=== PATIENT | female | born 2005 | race Caucasian/White ===

== ENCOUNTER 2024-10-05 17:34 | Observation (INO) | payer OTHER ==
[~2024-10-05] VITALS: Ht 167.6 cm; Wt 99.0 kg
[2024-10-05 19:06] LABS: BILIRUBIN, URINE POSITIVE (negative); BLOOD/HGB, URINE NEGATIVE (Negative); KETONE, URINE NEGATIVE (Negative); LEUK ESTERASE, URINE SMALL (negative); NITRITE, URINE NEGATIVE (negative); PH, URINE 5.5 (5-7)
[2024-10-05 19:15] LABS: BACTERIA, URINE 1+ /hpf (negative); CASTS, URINE NONE SEEN \\lpf; CRYSTALS, URINE NONE SEEN (0-1+); EPITHELIAL CELLS, URINE SQUAMOUS 2+ /lpf (0-1+); RED BLOOD CELLS, URINE 0-1 /hpf (0-5)
[2024-10-05 19:16] LABS: COLLECTION TYPE, URINE CLEAN CATCH; REFLEX CULTURE, URINE No (No)
[2024-10-05 19:38] LABS: BASOPHILS 2.8 % (0-2); EOSINOPHILS 3.4 % (0-6); HEMATOCRIT 38.1 % (35.0-50.0); HEMOGLOBIN 12.8 g/dL (12.0-18.0); LYMPHOCYTES 21.2 % (24-44); MCH 25.1 (27-36); MCHC 33.6 g/dl (30-36); MCV 74.9 fl (81-99); MONOCYTES 4.4 % (0-12); NEUTROPHILS 68.2 % (39-80); PLATELET COUNT 266 K/uL (140-440); RBC 5.09 M/ul (4.3-5.7); RDW 15.6 (10.5-15.0)
[2024-10-05 19:40] LABS: INR 1.07 (0.80-1.30); PROTIME 13.2 Sec (11.2-14.2)
[2024-10-05] MEDS ORDERED: MORPHINE SULFATE 4 MG/ML VIAL IV ONE (19:45)
[2024-10-05] MEDS ORDERED: ondansetron HCL 4 MG/2 ML VIAL IV ONE (19:45)
[2024-10-05 19:46] LABS: ALBUMIN 3.8 g/dL (3.4-5.0); ALBUMIN/GLOBULIN RATIO 1.06 (1.1-2.4); ALKALINE PHOSPHATASE 255 U/L (46-116); ALT (SGPT) 664 U/L (14-59); ANION GAP 13.2 (7-21); AST (SGOT) 401 U/L (15-37); BILIRUBIN, TOTAL 3.7 ng/dL (0.2-1.0); CALCIUM 8.9 mg/dL (8.5-10.1); CARBON DIOXIDE 28 mmol/L (21-32); CHLORIDE 104 mmol/L (98-107); CREATININE, SERUM 0.92 mg/dL (0.55-1.02); GAMMA GLUTAMYL TRANSFERASE 492 U/L (5-55); GLOMERULAR FILTRATION RATE,EST 91 mL/min (>60); MAGNESIUM 1.9 mg/dL (1.8-2.4); POTASSIUM 3.2 mmol/L (3.5-5.1); PROTEIN, TOTAL 7.4 g/dL (6.4-8.2); UREA NITROGEN 7 mg/dL (7-18)
[2024-10-05] MEDS ORDERED: metroNIDAZOLE/SODIUM CHLORIDE 500 MG/100 ML PIGGYBACK IV ONE (20:30)
[2024-10-05] MEDS ORDERED: CEFTRIAXONE/SODIUM CHLORIDE 2 GM/100 ML PIGGYBACK IV ONE (20:30)
[2024-10-05] MEDS ORDERED: HEParin SOD (PORCINE) 5,000 UNIT/ML SDV SUB-Q ONE (20:30)
[2024-10-05] MEDS ORDERED: DEXTROSE 5% - LACTATED RINGERS 1,000 ML IV SCH (20:45)
[2024-10-05] MEDS ORDERED: ondansetron HCL 4 MG/2 ML VIAL IV PRN (20:45)
[2024-10-05] MEDS ORDERED: ACETAMINOPHEN 325 MG TAB PO PRN (20:45)
[2024-10-05] MEDS ORDERED: HYDROmorphone HCL 1 MG/ML SYR IV PRN (20:45)
[2024-10-05 21:19] VITALS: BP 123/82
[2024-10-05] MEDS ORDERED: FLUOXETINE HCL40 MG PO (21:24)
--- NOTE | 2024-10-05 21:29 | NUR ---
2119- ARRIVED TO ROOM 115 FROM ER VIA STRETCHER, HELPED TRANSFERRING TO BED. IND. ALERT AND ORINETED X4, NO C/O PAIN AT THIS TIME, IV ABX INFUSING LAC. AWARE OF NPO STATUS. COOPERATIVE, ON ROOM AIR. SIGNIFICANT OTHER IN ROOM
--- NOTE | 2024-10-05 22:41 | NUR ---
C/O FEELING NAUSEATED, MEDICATED WITH ZOFRAN
[2024-10-05 23:00] VITALS: BP 123/82
--- NOTE | 2024-10-05 23:02 | NUR ---
pt had 400cc emesis, had jello and sips of water earlier, was medicated a few minutes ago with Zofran. Up to brp with 1PA, voiding. IVF infusing, no c/o pain at this time, fiancee in room. pt aware of NPO status, does own oral and jani care.
[2024-10-06] VITALS (10 sets, daily range): BP systolic 110–146; BP diastolic 65–86
--- NOTE | 2024-10-06 00:22 | NUR ---
Awake, no c/o pain or further c/o n/v. IVF infusing. NPO for am procedure. SCD's and CPOX at bedside. Tele#[phone] SB. male friend in room
--- NOTE | 2024-10-06 03:58 | NUR ---
Resting, no c/o or s/sx distress. on room air, VIF infusing w/o problems, tele#[address], sinus silvana, HR dropped to 45 and back to 56. awakens easily no c/o abd pain or n/v
[2024-10-06 05:23] LABS: BASOPHILS 1.3 % (0-2); EOSINOPHILS 5.7 % (0-6); HEMATOCRIT 36.9 % (35.0-50.0); HEMOGLOBIN 12.6 g/dL (12.0-18.0); LYMPHOCYTES 28.6 % (24-44); MCH 25.2 (27-36); MCV 74.2 fl (81-99); MONOCYTES 5.2 % (0-12); NEUTROPHILS 59.2 % (39-80); PLATELET COUNT 262 K/uL (140-440); RBC 4.97 M/ul (4.3-5.7); RDW 15.1 (10.5-15.0)
[2024-10-06 05:42] LABS: ALBUMIN 3.2 g/dL (3.4-5.0); ALBUMIN/GLOBULIN RATIO 0.94 (1.1-2.4); ANION GAP 11.3 (7-21); BILIRUBIN, TOTAL 1.5 ng/dL (0.2-1.0); BUN/CREATININE RATIO 5.43 (6.0-28.6); CALCIUM 8.6 mg/dL (8.5-10.1); CREATININE, SERUM 0.92 mg/dL (0.55-1.02); MAGNESIUM 1.9 mg/dL (1.8-2.4); POTASSIUM 3.3 mmol/L (3.5-5.1); PROTEIN, TOTAL 6.6 g/dL (6.4-8.2)
--- NOTE | 2024-10-06 06:03 | NUR ---
awake, up to brp w assist, voided fitz colored urine. no c/o n/v. c/o h/a, ice pack to back of head given with very mild relief stated. Back to bed pleasant and cooperative. NPO since midnight. jewelry removed by Rosina and under his care. SCD's and CPOX at bedside. IS return demonstration done
--- NOTE | 2024-10-06 06:24 | NUR ---
chelecystitis booklet and what to expect after surgery booklet given to pt, stated understanding. Dr Jesus here
[2024-10-06] MEDS ORDERED: DEXTROSE 5% - LACTATED RINGERS 1,000 ML IV SCH (06:30)
[2024-10-06] MEDS ORDERED: ondansetron HCL 4 MG/2 ML VIAL IV PRN ×2 (06:30→11:15)
[2024-10-06] MEDS ORDERED: OXYCODONE HCL 5 MG TAB PO PRN (06:30)
[2024-10-06] MEDS ORDERED: HYDROmorphone HCL 1 MG/ML SYR IV PRN ×2 (06:30→12:45)
[2024-10-06] MEDS ORDERED: ACETAMINOPHEN 500 MG TAB PO PRN (06:30)
[2024-10-06] MEDS ORDERED: IBUPROFEN 800 MG TAB PO PRN (06:30)
[2024-10-06] MEDS ORDERED: PROCHLORPERAZINE EDISYLATE 10 MG/2 ML VIAL IV PRN (06:30)
--- NOTE | 2024-10-06 07:12 | NUR ---
C/o h/a. Clarified with Dr Jesus prior to giving po Tylenol "with very small sip of water". Tylenol given by sanjuana CROW.
[2024-10-06] MEDS ORDERED: ENOXAPARIN SODIUM 40 MG/0.4 ML SYR SUB-Q SCH (09:00)
[2024-10-06] MEDS ORDERED: metroNIDAZOLE/SODIUM CHLORIDE 500 MG/100 ML PIGGYBACK IV SCH ×2 (09:00)
[2024-10-06] MEDS ORDERED: CEFTRIAXONE/SODIUM CHLORIDE 2 GM/100 ML PIGGYBACK IV SCH ×2 (09:00)
[2024-10-06] MEDS ORDERED: PANTOPRAZOLE SODIUM 40 MG/10 ML VIAL IV SCH (09:00)
--- NOTE | 2024-10-06 09:00 | NUR ---
PT RESTING IN BED AAO, SO AT BEDSIDE. DENIES PAIN IF SHE STAYS STILL IN BED, OTHERWISE RUQ PAIN. DENIES NEED FOR NAUSEA OR PAIN MEDS AT THIS TIME. IV SITE PATENT, ABX INFUSION STARTED. PRE OP TEACHING COMPLETE - DENIES QUESTIONS AT THIS TIME.
--- NOTE | 2024-10-06 09:03 | NUR ---
MED REC COMPLETE
[2024-10-06] MEDS ORDERED: MAGNESIUM SULFATE 1 GM/2 ML VIAL ONE (10:11)
[2024-10-06] MEDS ORDERED: propofoL 200 MG/20 ML VIAL ONE (10:11)
[2024-10-06] MEDS ORDERED: ondansetron HCL 4 MG/2 ML VIAL ONE (10:11)
[2024-10-06] MEDS ORDERED: DEXAMETHASONE SOD PHOS 4 MG/ML VIAL ONE (10:11)
[2024-10-06] MEDS ORDERED: KETAMINE in NS 50 MG/5 ML SYR ONE (10:12)
[2024-10-06] MEDS ORDERED: fentaNYL citrate 100 MCG/2 ML VIAL ONE (10:12)
[2024-10-06] MEDS ORDERED: ROCURONIUM BROMIDE 50 MG/5 ML SYR ONE (10:12)
[2024-10-06] MEDS ORDERED: SODIUM CHLORIDE 0.9% 40 ML IV ONE (10:12)
[2024-10-06] MEDS ORDERED: LIDOCAINE HCL 2% 5 ML SDV ONE (10:12)
[2024-10-06] MEDS ORDERED: MIDAZOLAM HCL 2 MG/2 ML VIAL ONE (10:16)
[2024-10-06] MEDS ORDERED: iopamidoL 30 ML VIAL ONE (10:19)
[2024-10-06] MEDS ORDERED: fentaNYL citrate 50 MCG/ML SDV IV PRN (11:15)
[2024-10-06] MEDS ORDERED: IBLOOD GLUCOSE TEST STRIP 1 EA TEST VI PRN (11:15)
[2024-10-06] MEDS ORDERED: NALOXONE HCL 0.4 MG SYR IV PRN (11:15)
[2024-10-06] MEDS ORDERED: SUGAMMADEX SODIUM 200 MG/2 ML ML ONE (11:44)
--- NOTE | 2024-10-06 12:26 | CONS ---
[facility] [address] [place], [place] [address] Signed DATE OF CONSULTATION: 10/06/2024 CHIEF COMPLAINT: Right upper quadrant abdominal pain. HISTORY OF PRESENT ILLNESS: Valeria is a 19-year-old female, who just had her first baby about five months ago. Her son was born vaginally. She had to have a D and C afterwards for a retained placenta. Since that time, she has been doing well. She has been having some trouble for the last month or so with pain in the right upper quadrant radiating through to her back. It is associated with nausea. It was quite severe yesterday and her urine was dark and the family thought maybe she was jaundiced. She had been to the [facility]. Her liver function tests were elevated. White count was normal. Beta-hCG was negative. She was sent to our local emergency room with respect to the above. The repeat lab this morning thankfully have decreased. Ultrasound confirmed her gallstones but the gallbladder wall is not thickened. The common bile duct is 3.9 mm. The liver is unremarkable and there is no pericholecystic fluid. She told us that when she had her septoplasty and tonsillectomy combined she had thrombosis in the right eye and lost 40% of the vision in that eye. She has had an extensive workup afterwards and nothing specific was found. They were not sure if she had a patent foramina ovale. They did not pursue anything further. In that regard, she is familiar with Lovenox. We went ahead and gave her Rocephin and Flagyl last night along with heparin. We will be repeating the Lovenox this morning. She has done very well overnight. Her fiancee is with her in the room. She said she feels better this morning. 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 Also, a D and C for retained placenta about five months ago. PAST SURGICAL HISTORY: Includes the septoplasty, tonsillectomy and the D and C. SOCIAL HISTORY: She does not smoke or drink. She has no primary care provider. She has a fiancee and her son, Franklyn was born about five months ago. Her father Abhinav is one of our pharmacist here at the hospital at [phone]. They live in [place], [place]. FAMILY HISTORY: A maternal grandmother had a stroke in her 40s. REVIEW OF SYSTEMS: She had 10 systems reviewed and she told me about her past medical history. No metal in Electronically Signed By: ERI LEY MD 10/06/24 1226 PATIENT NAME: VALERIA LARSON CONSULTATION DATE OF : 03 REPORT #: [id number] PHYSICIAN: ERI LEY MD PCP: JACQUE OROZCO MD REPORT IS CONFIDENTIAL AND NOT TO BE RELEASED WITHOUT AUTHORIZATION [facility] [address] [place], [place] [address] Signed her body. ALLERGIES: None. MEDICATIONS: Fluoxetine 40 mg p.o. at bedtime. PHYSICAL EXAMINATION: VITAL SIGNS: Her blood pressure is 117/65, heart rate 53, respiratory rate 15, temperature is 98.2. She is 98% to 100% on room air. She is 5 feet 6 inches tall at 99 kg with a body mass index of 35. GENERAL: Valeria is a 19-year-old female lying supine in her hospital bed. Our nurse is at the bedside along with her fiancee. In the room this morning, we really could not tell that she was jaundiced. She is in no acute distress. LUNGS: Clear to auscultation bilaterally. HEART: Bradycardic without murmur. ABDOMEN: Obese but soft. She is a little tender out laterally on the costal margin and a little bit over the head of the pancreas. She does not have any sense of fullness over the pancreas. LABORATORY DATA: Her white blood cell count is 5.4, hemoglobin is 12, mean cell volume is 74, neutrophils 59, platelets 262. Her creatinine 0.92. Her total bilirubin was 3.7, it is down to 1.5, AST was 401, it is down to 230, ALT was 664 it is down to 517. Diopter phosphatase was 255, it is down to 232. The albumin is 3.2. The urinalysis is generally negative. The beta-hCG was negative. The lipase was greater than 375. The amylase is pending. RADIOGRAPHIC STUDIES: The ultrasound report was reviewed and she has multiple gallstones. The gallbladder wall is not thickened. The common bile duct is unremarkable at 3.9 mm. There is no pericholecystic fluid and the liver is unremarkable. ASSESSMENT AND PLAN: Valeria is a 19-year-old female who presents with gallstone pancreatitis. It appears that she has passed her gallstone. I brought with me a brochure on the gallbladder and we looked at it page by page. She understands the location and function of the gallbladder. We discussed gallstones in detail. We also went over an ERCP and intraoperative cholangiogram. She understands laparoscopic versus open cholecystectomy. She understands expected intraop and postop course. There is risk including, but not limited to bleeding, infection, scarring, change in contour of the skin, damage to bowel, damage to main bile duct, incisional hernias and other unforeseen comorbidities. She has expressed understanding and would like to proceed with her surgery later this morning. I already have surgery scheduled and she will be to follow. Electronically Signed By: ERI LEY MD 10/06/24 1226 PATIENT NAME: VALERIA LARSON CONSULTATION DATE OF : 03 REPORT #: [id number] PHYSICIAN: ERI LEY MD PCP: JACQUE OROZCO MD REPORT IS CONFIDENTIAL AND NOT TO BE RELEASED WITHOUT AUTHORIZATION [address] [address] Signed MD DANIELLA Robin/MYRIAM /[id number] cc: Eri Ley MD Copies: ERI LEY MD ~ Electronically Signed By: ERI LEY MD 10/06/24 1226 PATIENT NAME: VALERIA LARSON CONSULTATION DATE OF : 03 REPORT #: [id number] PHYSICIAN: ERI LEY MD PCP: JACQUE OROZCO MD REPORT IS CONFIDENTIAL AND NOT TO BE RELEASED WITHOUT AUTHORIZATION
[2024-10-06] MEDS ORDERED: SEVOFLURANE 250 ML BTL INH ONE (12:29)
--- NOTE | 2024-10-06 13:33 | NUR ---
PT ARRIVES TO ROOM FROM PACU WITH UNIT MANAGER CONVENIENCE STORES - REPORT RECEIVED. PT DROWSY BUT ALERT AND RESPONDING APPROPRIATLEY TO QUESTIONS. RATES PAIN 4/10 IN ABD AT THIS TIME WHICH SHE STATES IS TOLERABLE. VS STABLE. CPOX IN PLACE AND WNL ON ROOM AIR. ICE PACK IN PLACE OVER ABD, MINIMAL SHADOWING ON UMBILICAL LAP SITE GAUZE. SO AT BEDSIDE AND DENIES QUESTIONS AT THIS TIME.
--- NOTE | 2024-10-06 13:42 | OR ---
[facility] [address] [place], [place] [address] Signed DATE OF OPERATION: 10/06/2024 SURGEON: Eri Jesus MD PREOPERATIVE DIAGNOSIS: Biliary pancreatitis. POSTOPERATIVE DIAGNOSIS: Biliary pancreatitis. PROCEDURES: Laparoscopic cholecystectomy with intraoperative cholangiogram. ESTIMATED BLOOD LOSS: Minimal. FINDINGS: Valeria had one small stone less than or equal to 3 mm inside her gallbladder. She did have some cholesterolosis. The intraoperative cholangiogram showed a long cystic duct with contrast flowing nicely into the duodenum. There was concern that she might have two tiny stones in her distal common bile duct. The contrast also flowed nicely up into the liver. INDICATIONS: Valeria is a 19-year-old female with a body mass index of 35. She had her first child about five months ago born vaginally. That has been going very well. She has been having some pain between her shoulder blades with nausea and pain in the right upper quadrant. On this occasion, her urine was dark and she looked to be a little jaundiced. She had been to the [facility]. Her lab work was concerning for the gallbladder, so she was sent over to the ER. The initial bilirubin was 3.7, it has dropped to 1.5. AST was 401, it is down to 230 and the ALT was 664 and is down to 517. Alkaline phosphatase was 255, it is down to 232. Her beta-hCG was negative. Her initial lipase was greater than 375. White count was normal. An ultrasound showed gallstones but no gallbladder wall thickening and no pericholecystic fluid. The liver was unremarkable. Her common bile duct was only 3.9 mm in diameter. I have been asked to admit her last night as a general surgeon on-call. She was given IV fluids along with Rocephin and Flagyl. When she was younger and on oral contraceptive pills, she had a septoplasty and a tonsillectomy combined. She had a thrombosis in the right eye causing 40% decrease in her vision. Consequently, we gave her heparin last night and Lovenox this morning. I had met with Valeria and her fiance this morning. We reviewed Electronically Signed By: ERI JESUS MD 10/06/24 1342 PATIENT NAME: VALERIA LARSON OPERATIVE REPORT DATE OF : 03 REPORT #: [id number] PHYSICIAN: ERI JESUS MD PCP: JACQUE OROZCO MD REPORT IS CONFIDENTIAL AND NOT TO BE RELEASED WITHOUT AUTHORIZATION [facility] [address] [place], [place] [address] Signed the above findings. I gave them our brochure on the gallbladder. We looked at it carefully. We reviewed the location and function of the gallbladder. We discussed gallstones and common bile duct stones. We reviewed the ERCP section. We reviewed the intraoperative cholangiogram section as well. They understand the expected intraop and postop course. There is risk including, but not limited to bleeding, infection, scarring, change in contour of skin, damage to bowel, damage to main bile duct, incisional hernias and other unforeseen comorbidities. Valeria and her fimaryae had expressed understanding and wished to proceed. DESCRIPTION OF PROCEDURE: Valeria was taken to the operating room and placed in the supine position under general endotracheal tube anesthesia. She was on subcutaneous Lovenox. SCDs were in place. She was on Rocephin and Flagyl. She was prepped and draped in the usual sterile fashion. We still could not palpate the gallbladder. She told me that her pain was more lateral and then right over the head of the pancreas. Our trocars were placed under direct visualization of camera without difficulty. We could easily see her gallbladder. It was grasped and elevated in the right upper quadrant. Her liver was completely unremarkable. We dissected out the triangle of Calot very carefully, could easily see the lymph node of Calot. The intraoperative cholangiocatheter was inserted into the cystic duct. Intraoperative cholangiogram was performed. Overall was quite satisfactory. The contrast flowed nicely. We thought maybe there are two tiny stones in the distal common bile duct but it is hard to know for sure. We know her lab work has improved. We filled up the duodenum nicely and the contrast also went up into the liver itself without any concerns. After this, we secured the cystic duct stump with a PDS Endoloop and two clips were placed across the cystic duct stump to franchesca its location. After this, the gallbladder was carefully and slowly removed from the gallbladder fossa with the help of the cautery. We had placed a clip across the cystic artery next to the lymph node of Calot. The cystic artery had been divided. After this, the gallbladder was placed into an EndoCatch bag and taken out through the supraumbilical trocar site. We used our laparoscopic suturing device to pass 0 Vicryl suture on either side of the fascia subxiphoid trocar site. This closed the fascia primarily. After this, all the gas was allowed to escape and the remaining trocars were removed. We closed the fascia supraumbilical trocar site with interrupted [id number] and simple 0 Vicryl sutures. Local anesthetic was injected into all trocar sites. Each trocar site was irrigated and suctioned out until clear. The skin and dermis of each trocar site were closed with interrupted 3-0 subcuticular Monocryl sutures. We then used Mastisol and 0.5 inch Steri-Strips to bring the skin edges together. This was covered with dry gauze and tape. After this, Valeria was awakened from her anesthesia, extubated in the OR and taken to recovery room in stable condition. Electronically Signed By: ERI JESUS MD 10/06/24 1342 PATIENT NAME: VALERIA LARSON YELITZA OPERATIVE REPORT DATE OF : 03 REPORT #: [id number] PHYSICIAN: ERI JESUS MD PCP: JACQUE OROZCO MD REPORT IS CONFIDENTIAL AND NOT TO BE RELEASED WITHOUT AUTHORIZATION [address] [address] Signed Eri Jesus MD ALB/MODL /[id number] cc: Eri Jesus MD Copies: ERI JESUS MD ~ Electronically Signed By: ERI JESUS MD 10/06/24 1342 PATIENT NAME: VALERIA LARSON OPERATIVE REPORT DATE OF : 03 REPORT #: [id number] PHYSICIAN: ERI JESUS MD PCP: JACQUE OROZCO MD REPORT IS CONFIDENTIAL AND NOT TO BE RELEASED WITHOUT AUTHORIZATION
[2024-10-06] MEDS ORDERED: OXYCODONE HCL10 MG PO (13:59)
--- NOTE | 2024-10-06 14:05 | NUR ---
PT RESTING IN BED WITH EYES CLOSE, RR EVEN AND UNLABORED. CPOX IN PLACE, SP02 STABLE ON ROOM AIR. NO DISTRESS NOTED.
--- NOTE | 2024-10-06 14:45 | NUR ---
10/06/24 1445 Timmy Alaniz 1212-PT ARRIVED TO PACU ON 6L/MASK. PT AROUSES TO VERBAL STIMULI. 1214-PT PULLING O2 MASK OFF AND SATS NOTED TO REMAIN 98-100% ON RA. RR APPEARS EVEN AND UNLABORED. PT APPEARS ANXIOUS. REORIENTED AND REASSURED PT. PT NOTED TO CALM. SURGICAL SITES VISUALIZED. 4 LAP SITES DRSGS OBSERVED. ALL APPEAR CDI. 1218-PT REPORTING PAIN IN THROAT, R SHOULDER, AND SURGICAL SITES. PT DENIES NAUSEA WHEN ASKED. PT REMAINS DROWSY AND NOTED TO DOZE OFF AND ON. PT EASILY AROUSES WITH VERBAL STIMULI. 1223-PT NOTED WITH DECREASED O2 SATS TO 89-90%. PT EDUCATED ON DEEP BREATHING AND COUGH. PT PROVIDED PILLOW TO HOLD TO ABD FOR DEEP BREATHING/COUGHING/POSITION CHANGES. PT INSTRUCTED ON HOW TO USE PILLOW TO HELP MINIMIZE DISCOMFORT IN SURGICAL SITES. PT VERBALIZES UNDERSTANDING. 1225-ICE BAG PLACED ON PTS SURGICAL SITES FOR PAIN RELIEF. PT REPORTING PAIN 8/10 IN ABD. PT CONT TO DENY NAUSEA. SATS NOTED TO BE STABLE AT 95% OR GREATER ON RA. PT REQUESTING HOB BE LOWERED SOME. HOB DECREASED FROM APPROX 30 DEGREES TO 20 DEGREES WITH PTS DIRECTION. PT REPORTS THIS TO BE HELPFULI N EASING PAIN. 1230-PT NOTED TO BEGIN MOANING LOUDLY AND REPORTING PAIN IN ABD. PT RATES PAIN AT 8/10. IV PAIN MEDS GIVEN PER ORDERS. RR REMAINS EVEN AND UNLABORED. SATS REMAIN 94% OR GREATER ON RA. PT MORE AWAKE, THOUGH STILL DROWSY. 1235-PAIN REPORTS NO RELIEF WITH IV PAIN MEDS GIVEN 5 MINS EARLIER. PT CONT TO RATE PAIN 8/10. PT STILL DENIES NAUSEA AND REPORTS SOURCE OF PAIN TO BE HER ABD. ADDITIONAL DOSE OF IV PAIN MEDS GIVEN. 1238-PT REQUESTING STAFF CALL HER FATHER WHO WORKS IN PHARMACY TO COME SIT WITH HER. PT FATHER WAS CALLED AND ARRIVED TO PACU. DR. LEY ALSO AT [facility] DISCUSSING CASE WITH BOTH PT AND HER FATHER. 1241-RR REMAINS EVEN AND UNLABORED. SATS 97% OR GREATER ON RA. PT REPORTING PAIN HAS NOT IMPROVED AND IS NOW WORSE AT 9/10 IN ABD. CALL PLACED TO AIDAN SAHU FOR ADDITIONAL PAIN MED ORDERS. RECEIVED VERBAL ORDERS FOR DILAUDID 0.25-0.5MG IV Q5 MINS FOR PAIN CONTROL. ORDERS ENTERED. 1245-BAG OF LR COMPLETED AND IV SL'D. 1249-0.25MG IV DILAUDID GIVEN. SATS REMAIN STABLE AT 95% OR GREATER ON RA. PTS FATHER REMAINS AT BEDSIDE PROVIDING REASSURANCE AND PAIN DISTRACTION. 1255-PT FATHER LEFT. PT CONT TO REPORT PAIN IN ABD AT 8-9/10. IV PAIN MEDS GIVEN PER ORDERS. RR REMAINS EVEN AND UNALBORED. SATS 95% OR GREATER ON RA. PT AWAKE BUT DROWSY. PT DOZING ON AND OFF, EASILY AROUSES TO VERBAL STIMULI. 1308-PT REPORTS PAIN IMPROVED TO 5/10 IN ABD. PT REPORTING THIS TO BE MORE THAN TOLERABLE FOR HER. PT CONT TO DOZE ON AND OFF. EASILY AROUSES. VSS. 1315-PT HOB INCREASED BACK TO 30 DEGREES AT PT REQUEST. PT REPORTING PAIN INCREASING SLIGHTLY TO 6/10 IN ABD. PT REQUESTS ADDITIONAL PAIN MEDS. 1316-IV PAIN MEDS GIVEN PER EMAR. SATS REMAIN STABLE ON RA AT 95% OR GREATER. RR CONT TO APPEAR EVENA ND UNLABORED. PT EASILY AROUSED AND ABLE TO FOLLOW COMMAND AND ANSWER QUESTIONS APPROPRIATELY. 1325-PT REPORTS PAIN IMPROVED TO 4/10 IN ABD AND REPORTS THIS TO BE TOLERABLE FOR HER. PT ASKING TO SEE HER FIANCE. GRAIN COMBINER NOTIFIED PT RETURNING SOON. SATS REMAIN STABLE ON RA AT 98-100%. PT CONT TO DENY NAUSEA. SURGICAL SITES VISUALIZED. SMALL AMT OF SHADOWING PRESENT ON UMBILICAL LAP SITE, REST OF LAP SITES X3 REMAIN CDI. 1330-PT TRASNFERRED TO MED SURG RM 115 VIA BED. REPORT GIVEN TO MS RN. SURGICAL SITES VISUALIZED. BED PLUGGED IN, CALL LIGHT GIVEN, BED IN LOW POSITION, WHEELS LOCKED, BILAT RAILS IN PLACE. VS TAKEN. PTS FIANCE IN ROOM UPON PTS ARRIVAL. ALL QUESTIONS ANSWERED.
[2024-10-06] MEDS ORDERED: TYLENOL EXTRA500 MG PO (14:50)
[2024-10-06] MEDS ORDERED: MIRALAX17 GM PO (14:54)
--- NOTE | 2024-10-06 15:53 | NUR ---
PT ASSISTED UP TO BATHROOM TO VOID - COMPLAINTS OF GAS PAIN, EDUCATION ON POST OP PAIN RELIEF PROVIDED. PT DENIES DIZZINESS WITH AMBULATION, WITHOUT DYSURIA. TOLERATING JELLO, WATER AND CRAKERS. POST OP VS STABLE.
[2024-10-07] MEDS ORDERED: PANTOPRAZOLE SODIUM 40 MG TABEC PO SCH (09:00)
--- NOTE | 2024-10-09 15:25 | PATH ---
[facility] [address] [place], [place] [address] Signed SPECIMEN(S): A GALLBLADDER SPECIMEN SOURCE: A. GALLBLADDER CLINICAL HISTORY: Cholecystitis FINAL PATHOLOGIC DIAGNOSIS: Gallbladder, cholecystectomy: - Chronic and slight acute calculous cholecystitis. JVR:augustine MICROSCOPIC EXAMINATION: Histologic sections of all submitted blocks are examined by light microscopy. These findings, together with the gross examination, support the pathologic diagnosis. GROSS DESCRIPTION: The specimen, labeled and designated "Josemanuel, E., gallbladder and contents per requisition," is received in formalin and consists of Specimen: Previously surgically disrupted gallbladder. Dimensions: 9.2 x 2.8 x 2.3 cm. Serosa: Smooth. Cystic Duct: Unobstructed. Calculi: Present in container. Mucosa: [place] and velvety. Wall thickness: 0.4 cm. Lymph node: No pericystic lymph nodes are grossly identified. Additional: None. Marketing And Public Relations Manager sections are submitted in (A1). AA (under the direct supervision of a pathologist) The Gross Description was prepared using a voice recognition system. The report was reviewed for accuracy; however, sound-alike word errors, addition and/or deletions may occur. If there is any question about this report, please contact Client Services. PERFORMING LABORATORY: Technical component was performed by [facility], [address] [place] [id number] (CLIA# [id number]). Professional interpretation was performed by [facility] [place], [address] PATIENT NAME: JOSEMANUELGREGORY YELITZA PATHOLOGY DATE OF : 03 REPORT #: [id number] PHYSICIAN: MARIA A PATHOLOGY PCP: JACQUE OROZCO MD REPORT IS CONFIDENTIAL AND NOT TO BE RELEASED WITHOUT AUTHORIZATION [address] [place], [place] [address] [place] [address] (CLIA#: [id number]). Diagnostician: Pavel Wilkes MD Pathologist Electronically Signed 10/09/2024 Copies: ~ PATIENT NAME: GREGORY LARSON PATHOLOGY DATE OF : 03 REPORT #: [id number] PHYSICIAN: MARIA A PATHOLOGY PCP: JACQUE OROZCO MD REPORT IS CONFIDENTIAL AND NOT TO BE RELEASED WITHOUT AUTHORIZATION
== END 2024-10-06 17:30 | disposition home or self-care (01) ==
LOC: ED 17:34 → MS 17:36
PROVIDERS: Emergency Medicine; Family Medicine; ADMIT Colon & Rectal Surgery; ATTEND Colon & Rectal Surgery
PROC: BF03YZZ Plain Radiography of Gallbladder and Bile Ducts using Other Contrast (ICD-10-PCS; 2024-10-06)
PROC: 0FT44ZZ Resection of Gallbladder, Percutaneous Endoscopic Approach (ICD-10-PCS; principal; 2024-10-06 10:30)
DX: K80.12 Calculus of gallbladder with acute and chronic cholecystitis without obstruction (principal); K85.10 Biliary acute pancreatitis without necrosis or infection
CPT/HCPCS: 00790; 36415; 74300; 76705; 80053; 81001; 82150; 82977; 83690; 83735; 84703; 85025; 85610; 88304; 94762; 96361; 96365; 96366; 96367; 96368; 96372; 96375; 96376; 99285-25; A9270; G0378; J0696; J1100; J1171; J1644; J1650; J2003; J2250; J2270; J2405; J2470; J2704; J3010; J3475; J3490; J7121; Q9967